=== PATIENT | female | born 1950 | race Caucasian/White ===

== ENCOUNTER → 2016-05-09 | Outpatient (CLI) | payer BC ==
[~2016-05-09] MED LIST: ACET1TAB84 PO; ASPCH81X PO; CETI10TA84 PO; MULT-916 PO; NORT25CA PO; OMEG10007 PO; PARO1TAB29 PO; PIRB200A INH; PRIM50TA29 PO
--- NOTE | 2016-05-09 09:49 | DIAGNOSTIC IMAGING REPORT ---
LEFT THUMB 3 VIEWS ROUTINE CLINICAL HISTORY: S63.602A Left thumb [id number] COMPARISON STUDY: None. FINDINGS: No acute fracture or dislocation. Moderate degenerative changes at the first carpometacarpal joint. Mild soft tissue swelling at the thumb base. No radiopaque foreign bodies. IMPRESSION: No fracture or dislocation within the left thumb. Electronically signed by: Akira Chong M.D. 05/09/2016 9:47 AM Dictated Date/Time: 05/09/2016 9:40 AM
== END | disposition home or self-care (01) ==
LOC: C.RAD1850 09:28
PROVIDERS: ATTEND Internal Medicine
DX: S63.602A Unspecified sprain of left thumb, initial encounter (principal); X58.XXXA Exposure to other specified factors, initial encounter

== ENCOUNTER → 2017-02-11 | Outpatient (CLI) | payer BC ==
--- NOTE | 2017-02-11 15:20 | MAMMOGRAPHY REPORT ---
BILATERAL DIGITAL DIAGNOSTIC MAMMOGRAM TOMOSYNTHESIS WITH CAD AND TARGETED LEFT ULTRASOUND: 7 CLINICAL HISTORY: 66-year-old woman presents for bilateral mammography and also close follow-up of pr obably benign grouped calcifications in the left upper outer quadrant. TECHNIQUE: Bilateral CC and MLO 2-D and tomosynthesis images, spot magnification left CC and ML view s were obtained. Current study was also evaluated with a Computer Aided Detection (CAD) system. COMPARISON: Comparison is made to exams dated: 02/06/2016 mammogram, 02/01/2015 mammogram, 08/02/2014 m ammogram, 02/01/2014 mammogram, 01/18/2014 mammogram, and 01/14/2013 mammogram - [facility]. BREAST COMPOSITION: There are scattered areas of fibroglandular density in both breasts. FINDINGS: The microcalcifications loosely grouped in the upper outer posterior left breast have decr eased in number and conspicuity comparing to prior exams, confirming benignity. There is a faint 2 m m grouping of amorphous microcalcifications in the middle one third of the left breast, 6.3 cm distal to the nipple on the spot magnification CC view, which are unchanged comparing to the spot magnifica tion views performed 02/06/2016, but not as well seen on the 2014 spot magnification views. Although these most likely represent benign fibrocystic changes, another 12 month follow-up diagnostic mammog neva and focused in the central left breast is recommended to ensure stability. No further follow-up is needed with regard to the microcalcifications in the left upper outer posterior breast. There is a 7.2 x 4.1 mm circumscribed oval mass in the lateral left breast, best seen on cc tomosynth esis slice 30, thought to project superiorly based on the MLO view although not as conspicuous. Furt her evaluation with ultrasound was performed. No other obvious new mass, asymmetry, focal area of architectural distortion or other suspicious micr ocalcifications are identified. Targeted ultrasound was performed in the lateral left breast. In the 1:00 axis, 67 m from the nipple , there is an oval circumscribed hypoechoic solid-appearing mass measuring 5.1 x 2.6 x 3.9 mm. This is thought to correspond to the mammographic mass and is indeterminate. Definitive characterization with an ultrasound guided core biopsy is recommended. A more cystic-appearing mass is seen deep to t he first in the approximate 1:30 left breast, 5 cm from the nipple, measuring 3.6 x 2.9 x 2.8 mm. Ul trasound guided cyst aspiration is recommended at the time of core biopsy, to ensure a benign cyst. IMPRESSION: ACR BI-RADS CATEGORY 4: SUSPICIOUS, TARGETED ULTRASOUND ACR BI-RADS CATEGORY 4: SUSPICIO US 1. Less conspicuous and decreased number of grouped microcalcifications in the upper outer posterior left breast, confirming benignity. No further close follow-up is needed at this time. 2. A smaller 2 mm grouping of faint punctate and amorphous microcalcifications in the central left b reast, along the posterior nipple line on the spot magnification CC view appear unchanged for one yea r but longer stability is needed. Another 12 month follow-up diagnostic mammogram of the left breast including spot magnification views is recommended. 3. Ultrasound-guided core biopsy is recommended for an indeterminate solid 5.1 mm mass in the 1:00 l eft breast, thought to correlate with a newly visualized mammographic mass. 4. Ultrasound guided cyst aspiration is recommended at the time of core biopsy for a cystic appearin g 3.6 mm mass in the 1:30 left breast, 5 cm from the nipple. 5. Stable mammographic appearance of the right breast, without evidence of malignancy. These results and recommendations were discussed with the patient at the time of the exam. She tenta tively scheduled the ultrasound guided core biopsy and cyst aspiration prior to leaving our departmen t. Approximately 10% of breast cancers are not detected with mammography. A negative mammographic report should not delay biopsy if a clinically suggestive mass is present. Julianna eG M.D. ay/:02/11/2017 11:25:10 Plaster Mixer: Luis Fernando OLIVIA(R)(M), [facility] letter sent: Abnormal 4/5 BI-RADS Code: ACR BI-RADS Category 4: Suspicious Ultrasound BI-RADS: ACR BI-RADS Category 4: Suspici ous
== END | disposition home or self-care (01) ==
LOC: C.MAMM 08:25
PROVIDERS: ATTEND Obstetrics & Gynecology
DX: R92.8 Other abnormal and inconclusive findings on diagnostic imaging of breast (principal)

== ENCOUNTER → 2017-02-17 | Outpatient (CLI) | payer BC ==
--- NOTE | 2017-02-17 12:23 | Discharge Instructions ---
Discharge Instructions Procedure Procedure Date: Feb 17, 2017. Reason for visit: Left Breast Mass And Cyst. Discharge Discharge Date: Feb 17, 2017. Discharge Diagnosis: post left breast cyst aspiration and core biopsy Instructions Activity Recommendations: Additional Limitations (see below) Return to School/Work: no limitations Recommended Home Diet: No Limitations Provider Instructions: ACTIVITY RECOMMENDATIONS: * No lifting, pushing, pulling or exercising the affected side for three days. RETURN TO SCHOOL/WORK: * You may return to work/school after the procedure, but do not perform any strenuous activities for 24 to 48 hours. MEDICATIONS: * Tylenol (two 325 mg) every four to six hours if needed for mild pain (if not allergic to Tylenol). DIET: * Resume previous diet. SPECIAL CARE INSTRUCTIONS: * Keep biopsy site dry for 24 hours. May shower after 24 hours, but do not soak (bathe) incision. * May remove Tegaderm (plastic patch) tomorrow AFTER showering. * Leave the steri-strips on for one week. Allow the steri-strips to fall off by themselves. If not off after one week, you may remove them. You may place a Bandaid crosswise over the strips, if desired. * Apply ice 10 minutes on and 10 minutes off as needed. * Wear a bra at bedtime to sleep more comfortably for 2-3 days. * Your referring physician should have the results after approximately 5 to 7 business days. * Call for unusual bleeding, fever, drainage, etc or if you have any questions call [phone] during normal business hours or after hours call Dr Ge, . FOLLOW UP VISIT: Follow-up with Referring Physician as scheduled. Allergies Coded Allergies: Latex1 -Allergic Contact Dermititis (Verified Allergy, Mild, RASH, 03/29/16 ) Adhesives (Verified Allergy, Unknown, RASH, 03/29/16) WITH BANDAIDS; TOLERATES PAPER TAPE Benzoyl Peroxide (Verified Allergy, Unknown, RASH, 03/29/16) Dust (Verified Allergy, Unknown, UNK, 03/29/16) Grass (Verified Allergy, Unknown, UNK, 03/29/16) Molds and Smuts (Verified Allergy, Unknown, UNK, 03/29/16) Zelda Durán Recommendations: Call your doctor if: * Temperature above 101 degrees * Pain not relieved by pain medicine ordered * There is increased drainage or redness from any incision * You have any unanswered questions or concerns. Your Doctors Instructions noted above were prepared by provider Julianna Ge. Patient Signature Section: Patient Instructions Signature Page Neetu Allen Patient (or Guardian) Signature/Date: I have read and understand the instructions given to me by my caregivers. Caregiver/RN/Doctor Signature/Date: The above-named patient and/or guardian has received patient instructions on this date. + Original Patient Signature Page (only) stays with chart. Please make copy for patient.
--- NOTE | 2017-02-17 13:34 | MAMMOGRAPHY REPORT ---
ASPIRATION LEFT BREAST: 02/17/2017 CLINICAL HISTORY: Indeterminate 3.6 mm nearly anechoic cystic-appearing mass in the 1:30 left breast. Patient presents for ultrasound-guided cyst aspiration. COMPARISON: Comparison is made to exams dated: 02/17/2017 ultrasound biopsy, 02/11/2017 mammogram, 1 ultrasound, 02/06/2016 mammogram, 02/01/2015 mammogram, and 08/02/2014 mammogram - [facility]. PATIENT CONSENT: After explaining the risks, benefits and alternatives of the procedure to the patien t, informed consent was obtained verbally and in writing. Specific risks include: bleeding, infection and puncture of adjacent structure. A time out was preformed and the left breast was confirmed as th e site for both cyst aspiration and core needle biopsy. First repeat targeted ultrasound was performed in the 1:30 left breast in the area of previously iden tified 3.6 mm mass that was nearly anechoic and a probable cyst. This is again identified and amenab le to ultrasound guided cyst aspiration. The skin of the left breast was cleansed with Betadine. 1% buffered lidocaine without epinephrine was administered subcutaneously and intraparenchymally as wel l as surrounding the cystic-appearing mass. Then a 22-gauge needle was advanced to the site of the m ass and then within the mass. Aspiration was performed and the mass resolved completely, confirming cystic nature. The fluid was somewhat bloody therefore sent to the pathology department for cytologi c analysis. IMPRESSION: ASPIRATION Status post aspiration to resolution of a suspected small cyst in the 1:30 left breast. The cyst res olved completely after aspiration based on ultrasound imaging. The fluid was sent to the pathology d epartment for cytologic analysis. The cyst was incidentally identified on ultrasound and not definitely identified mammographically eit her on the pre-procedure or postprocedure tomosynthesis images. Julianna Ge M.D. ay/:02/17/2017 12:43:34 Cutting Table Operator: Nery MILES)(Lionel), [facility]
--- NOTE | 2017-02-17 13:34 | MAMMOGRAPHY REPORT ---
ULTRASOUND GUIDED BIOPSY LEFT BREAST: 02/17/2017 CLINICAL HISTORY: Indeterminate hypoechoic parallel 5.1 mm mass in the 1:00 left breast. Patient pre sents for ultrasound-guided core biopsy. A cyst aspiration was performed of a cystic-appearing mass in the 1:30 left breast during the same appointment. Please refer to a separate report for full deta il. COMPARISON: Comparison is made to exams dated: 02/11/2017 mammogram, 02/11/2017 ultrasound, 02/06/20 16 mammogram, 02/01/2015 mammogram, 08/02/2014 mammogram, and 02/01/2014 mammogram - [facility]. PATIENT CONSENT: The procedure, risks and benefits were discussed with the patient and informed conse nt was obtained both verbally and in writing. Specific risks to this procedure include: bleeding, in fection, puncture of adjacent structure, nontarget biopsy, sampling error, pain, metal allergy and me dication reaction. PROCEDURE DESCRIPTION: A time out was performed and the left breast was agreed as the site of biopsy. The skin was prepped and draped in the usual sterile fashion. The solid mass in the 1:00 left breast was chosen as the target for biopsy. Subcutaneous and intraparenchymal 1% buffered lidocaine, with a nd without epinephrine, was administered as local anesthesia. A skin incision was made. Through the incision, 4 samples were taken with a 14 gauge Achieve biopsy device. A ribbon shaped metallic marker was placed at the biopsy site. Hemostasis was achieved after manual compression. The patient tolerat ed the procedure well and there was no immediate complication. The samples were sent to the patholog y department in an appropriately labeled container. Postprocedure left cc and MLO 2-D and tomosynthesis images were obtained. There is a new ribbon-shap ed biopsy marker clip in the 1:00 middle one third of the left breast, aligning with the mammographic mass in question. There is mild persistent lidocaine versus postbiopsy hematoma surrounding the bio psy marker clip. IMPRESSION: ULTRASOUND GUIDED BIOPSY 1. Status post ultrasound-guided core biopsy of an indeterminate solid appearing 5.1 mm mass in the 1:00 left breast, with biopsy marker placed at the site. 2. An ultrasound-guided cyst aspiration was performed in the 1:30 left breast during the same appoin tment, and that cystic mass aspirated to resolution. The fluid from the cyst aspiration was also sen t for cytologic analysis. 3. Pending benign pathology/cytology results, would recommend follow-up diagnostic mammograms includ ing spot magnification views in 12 months to ensure stability of previously described microcalcificat ions. The patient will receive notification of the biopsy results from her referring physician. Julianna Ge M.D. ay/:02/17/2017 12:46:18 Shirt Sewer: Nery MILES)(Lionel), [facility]
--- NOTE | 2017-02-17 13:36 | MAMMOGRAPHY REPORT ---
UNILATERAL LEFT DIGITAL DIAGNOSTIC MAMMOGRAM TOMOSYNTHESIS: 02/17/2017 CLINICAL HISTORY: Status post left breast ultrasound-guided cyst aspiration in the 1:30 axis and ultr asound-guided core biopsy in the 1:00 axis. Please refer to the reports from left breast ultrasound-guided cyst aspiration and ultrasound-guided core biopsy performed at the same time for full detail. IMPRESSION: POST PROCEDURE IMAGING FOR MARKER PLACEMENT Please refer to the reports from left breast ultrasound-guided cyst aspiration and ultrasound-guided core biopsy performed at the same time for full detail. Approximately 10% of breast cancers are not detected with mammography. A negative mammographic report should not delay biopsy if a clinically suggestive mass is present. Julianna Ge M.D. ay/:02/17/2017 12:24:21 Manager Clinical Applications: Nery MILES)(Lionel), [facility] BI-RADS Code: Post Procedure Imaging For Marker Placement
== END | disposition home or self-care (01) ==
LOC: C.MAMM 11:26
PROVIDERS: ATTEND Obstetrics & Gynecology
DX: N60.02 Solitary cyst of left breast (principal); N60.92 Unspecified benign mammary dysplasia of left breast

== ENCOUNTER → 2017-04-22 | Outpatient (CLI) | payer BC ==
[~2017-04-22] MED LIST changes: +ACET5TAB2 PO; +ASPI1TAB2 PO; +IPRA1AER2 INH; +MISCCAP80 PO; +MULT-506 PO; +TEARS OPB; +WHEAPOW PO
== END | disposition home or self-care (01) ==
LOC: C.PAPS 13:40
PROVIDERS: ATTEND Obstetrics & Gynecology
DX: Z01.419 Encounter for gynecological examination (general) (routine) without abnormal findings (principal); Z87.898 Personal history of other specified conditions

== ENCOUNTER → 2017-05-28 | Outpatient (CLI) | payer OTHER ==
[~2017-05-28] MED LIST changes: -ACET5TAB2 PO; -ASPI1TAB2 PO; -IPRA1AER2 INH; -MISCCAP80 PO; -MULT-506 PO; -TEARS OPB; -WHEAPOW PO
[2017-05-28 13:35] LABS: BASO % 0.4 %; BASO ABS # 0.03 K/uL (0-0.2); EOS % 2.3 %; EOS ABS # 0.16 K/uL (0-0.5); HEMATOCRIT 40.5 % (37-47); HEMOGLOBIN 13.2 g/dL (12.0-16.0); IG# 0.01 K/uL (0.00-0.02); LYMPH % 40.3 %; LYMPH ABS # 2.85 K/uL (1.2-3.4); MEAN CELL VOLUME 86.9 fL (80-100); MEAN CORPUSCULAR HEMOGLOBIN 28.3 pg (25-34); MEAN CORPUSCULAR HGB CONC 32.6 g/dl (32-36); MEAN PLATELET VOLUME 10.2 fL (7.4-10.4); MONO % 10.6 %; MONO ABS # 0.75 K/uL (0.11-0.59); NEUT % 46.3 %; NEUT ABS # 3.28 K/uL (1.4-6.5); PLATELET COUNT 276 K/uL (130-400); RED CELL DISTRIBUTION WIDTH CV 14.5 % (11.5-14.5); RED CELL DISTRIBUTION WIDTH SD 45.9 fL (36.4-46.3); WHITE BLOOD COUNT 7.08 K/uL (4.8-10.8)
[2017-05-28 14:00] LABS: ALBUMIN 3.8 gm/dl (3.4-5.0); ALT/SGPT 19 U/L (12-78); BLOOD UREA NITROGEN 10 mg/dl (7-18); CALCIUM 9.4 mg/dl (8.5-10.1); CARBON DIOXIDE 27 mmol/L (21-32); CHOLESTEROL 184 mg/dl (0-200); CREATININE 0.76 mg/dl (0.60-1.20); GLUCOSE 90 mg/dl (70-99); POTASSIUM 3.9 mmol/L (3.5-5.1); SODIUM 138 mmol/L (136-145)
[2017-05-28 14:06] LABS: ALKALINE PHOSPHATASE 119 U/L (45-117); AST/SGOT 12 U/L (15-37); LDL CHOLESTEROL CALCULATED 99 mg/dl; TOTAL PROTEIN 7.7 gm/dl (6.4-8.2)
== END | disposition home or self-care (01) ==
LOC: C.LABBC 10:58
PROVIDERS: ATTEND Physician Assistant
DX: Z00.00 Encounter for general adult medical examination without abnormal findings (principal)

== ENCOUNTER → 2017-08-26 | Day surgery (SDC) | payer BC, OTHER ==
[2017-08-11 14:08] VITALS: Ht 156.2 cm; Wt 120.5 kg
[~2017-08-26] VITALS: Ht 156.2 cm; Wt 120.5 kg
[~2017-08-26] MED LIST changes: -ACET1TAB84 PO; +ACET5TAB2 PO; -ASPCH81X PO; +ASPI1TAB2 PO; +IPRA1AER2 INH; +LIDOCAINE HCL 2% 2 ML VIAL (20MG/ML) ONE; +MISCCAP80 PO; +MULT-506 PO; -MULT-916 PO; -PIRB200A INH; +PROPOFOL IV EMULSION 10 MG/ML 20 ML VIAL ONE; +SODIUM CHLORIDE 0.9% 500ML 500 ML IV ONE; +TEARS OPB; +WHEAPOW PO
--- NOTE | 2017-08-26 10:05 | Endo History and Physical ---
History & Physical Date of Service: August 26, 2017. Chief Complaint: Screening Referring Physician: Dr. Valerio History of Present Illness 67 yo CF who presents for screening colonoscopy. Past Surgical History Hx Cardiac Surgery: No Hx Internal Defibrillator: No Hx Pacemaker: No Hx Abdominal Surgery: Yes (TUBAL LIGATION, HYSTEROSCOPY) Hx of Implantable Prosthesis: No Hx Post-Op Nausea and Vomiting: Yes Hx Cancer Surgery: No Hx Thoracic Surgery: No Hx Orthopedic: Yes (RT/LEFT TKA) Hx Urinary Tract Surgery: No Family History None Social History Smoking Status: Never Smoker Hx Substance Use: No Hx Alcohol Use: Yes (RARELY) Allergies Coded Allergies: Latex1 -Allergic Contact Dermititis (Verified Allergy, Mild, RASH, 08/11/17 ) Adhesives (Verified Allergy, Unknown, RASH, 08/11/17) WITH BANDAIDS; TOLERATES PAPER TAPE Benzoyl Peroxide (Verified Allergy, Unknown, RASH, 08/11/17) Dust (Verified Allergy, Unknown, SHORTNESS OF BREATH, 08/11/17) Grass (Verified Allergy, Unknown, SHORTNESS OF BREATH, 08/11/17) Molds and Smuts (Verified Allergy, Unknown, SHORTNESS OF BREATH, 08/11/17) Uncoded Allergies: WOOL (Allergy, Unknown, RASH, 08/11/17) Current Medications Reported Home Medications Medications Dose Route/Sig Max Daily Dose Days Date Category Benefiber Drink Mix (Wheat Dextrin) 1 Pow Pow 1 Dose PO QAM 08/11/17 Reported Combivent Respimat (Ipratropium-Albuterol) 1 Aer Aer 1 Puffs INH HS 08/11/17 Reported Arthritis Pain Reliever (Acetaminophen) 650 Mg Tab 2 Tab PO Q8H PRN 08/11/17 Reported [Gel Tears] 1 Drop OPB HS 08/11/17 Reported Wilma Aspirin Ec Low Dose (Aspirin) 81 Mg Tab 1 Tab PO HS 08/11/17 Reported Paxil (Paroxetine HCl) 40 Mg Tab 40 Mg PO HS 08/11/17 Reported Pamelor (Nortriptyline HCl) 25 Mg Cap 2 Cap PO HS 08/11/17 Reported Probiotic (Probiotic Product) 1 Cap Cap 1 Cap PO QAM 08/11/17 Reported Mysoline (Primidone) 50 Mg Tab 50 Mg PO TID PRN 08/11/17 Reported [place]-3 (Fish Oil) 1 Ea Cap 1 Cap PO QAM 08/11/17 Reported Multivitamin (Multivitamins) Tab 1 Tab PO QAM 08/11/17 Reported Zyrtec (Cetirizine HCl) 10 Mg Tab 10 Mg PO QAM 08/11/17 Reported Vital Signs Weight (Kilograms): 120.45 Height (Feet): 5 Height (Inches): 1.5 Date Time Temp Pulse Resp B/P (MAP) Pulse Ox O2 Delivery O2 Flow Rate FiO2 08/26/17 09:47 37.1 102 20 168/91 (116) 98 Room Air Physical Exam General Appearance: WD/WN, no apparent distress Respiratory/Chest: Auscultation: breath sounds normal Cardiovascular: Heart Auscultation: RRR Abdomen: Bowel Sounds: normal Inspection & Palpation: soft, non-distended, no tenderness, guarding & rebound Assessment and Plan Assessment: 67 yo CF who presents for screening colonoscopy. Plan: Proceed with colonoscopy.
--- NOTE | 2017-08-26 10:55 | Anesthesiology Progress Note ---
Anesthesia Post Op Note Date & Time August 26, 2017 at 10:55 Vital Signs Pain Intensity: 0 Vital Signs Past 12 Hours Date Time Temp Pulse Resp B/P (MAP) Pulse Ox O2 Delivery O2 Flow Rate FiO2 08/26/17 09:47 37.1 102 20 168/91 (116) 98 Room Air Notes Mental Status: alert / awake / arousable, participated in evaluation Pt Amnestic to Procedure: Yes Nausea / Vomiting: adequately controlled Pain: adequately controlled Airway Patency, RR, SpO2: stable & adequate BP & HR: stable & adequate Hydration State: stable & adequate Anesthetic Complications: no major complications apparent
--- NOTE | 2017-08-26 10:58 | Discharge Instructions ---
Endoscopy Patient Instructions Date / Procedure(s) Performed August 26, 2017. Colonoscopy Allergy Information Coded Allergies: Latex1 -Allergic Contact Dermititis (Verified Allergy, Mild, RASH, 08/11/17 ) Adhesives (Verified Allergy, Unknown, RASH, 08/11/17) WITH BANDAIDS; TOLERATES PAPER TAPE Benzoyl Peroxide (Verified Allergy, Unknown, RASH, 08/11/17) Dust (Verified Allergy, Unknown, SHORTNESS OF BREATH, 08/11/17) Grass (Verified Allergy, Unknown, SHORTNESS OF BREATH, 08/11/17) Molds and Smuts (Verified Allergy, Unknown, SHORTNESS OF BREATH, 08/11/17) Uncoded Allergies: WOOL (Allergy, Unknown, RASH, 08/11/17) Discharge Date / Findings August 26, 2017. Colon polyps Diverticulosis Internal hemorrhoids Medication Instructions Stopped Medication(s): Patient was told to not take any medications this am. OK to resume all medications today as prescribed Reported Home Medications Medications Dose Route/Sig Max Daily Dose Days Date Category Benefiber Drink Mix (Wheat Dextrin) 1 Pow Pow 1 Dose PO QAM 08/11/17 Reported Combivent Respimat (Ipratropium-Albuterol) 1 Aer Aer 1 Puffs INH HS 08/11/17 Reported Arthritis Pain Reliever (Acetaminophen) 650 Mg Tab 2 Tab PO Q8H PRN 08/11/17 Reported [Gel Tears] 1 Drop OPB HS 08/11/17 Reported Wilma Aspirin Ec Low Dose (Aspirin) 81 Mg Tab 1 Tab PO HS 08/11/17 Reported Paxil (Paroxetine HCl) 40 Mg Tab 40 Mg PO HS 08/11/17 Reported Pamelor (Nortriptyline HCl) 25 Mg Cap 2 Cap PO HS 08/11/17 Reported Probiotic (Probiotic Product) 1 Cap Cap 1 Cap PO QAM 08/11/17 Reported Mysoline (Primidone) 50 Mg Tab 50 Mg PO TID PRN 08/11/17 Reported [place]-3 (Fish Oil) 1 Ea Cap 1 Cap PO QAM 08/11/17 Reported Multivitamin (Multivitamins) Tab 1 Tab PO QAM 08/11/17 Reported Zyrtec (Cetirizine HCl) 10 Mg Tab 10 Mg PO QAM 08/11/17 Reported Provider Instructions Activity Restrictions - No exercising or heavy lifting for 24 hours. - Do not drink alcohol the day of the procedure. - Do not drive a car or operate machinery until the day after the procedure. - Do not make any important decisions or sign important papers in 24 hours after the procedure. Following Day: - Return to full activity which may include returning to work/school. Diet Start your diet with liquids and light foods (jello, soup, juice, toast). Then eat your usual diet if not nauseated. Treatment For Common After Affects For mild abdominal pain, bloating, or excessive gas: - Rest - Eat lightly - Lie on right side Follow-Up Information Follow-up with Dr. Valerio as scheduled Anesthesia Information What You Should Know You have had a procedure that required some medicine to reduce anxiety and discomfort. This treatment is called moderate sedation. After receiving the treatment, you may be sleepy, but you will be able to breathe on your own. The effects of the treatment may last for several hours. Follow these instructions along with Activity/Diet recommendations noted above: * Do NOT do anything where dizziness or clumsiness would be dangerous. * Rest quietly at home today, then you can be up and about tomorrow. * Have a responsible person stay with you the rest of today. * You may have had an I.V. today. If so, you may take the dressing off later today. Recommendations Call your doctor if: * Trouble breathing * Continuous vomiting for more than 24 hours * Temperature above 101 degrees * Severe abdominal pain or bloating * Pain not relieved by pain medicine ordered * There is increased drainage or redness from any incision * A large amount of rectal bleeding greater than 2-3 tablespoons. (If you had a polyp/s removed or have hemorrhoids, a small amount of blood - from the rectum is to be expected.) * You have any unanswered questions or concerns. IN THE EVENT OF A SERIOUS EMERGENCY, GO TO THE NEAREST EMERGENCY ROOM Your discharge instructions were prepared by provider Jeff Cordero. Patient Instructions Signature Page Neetu Villa Patient (or Guardian) Signature/Date: I have read and understand the instructions given to me by my caregivers. Caregiver/RN/Doctor Signature/Date: The above-named patient and/or guardian has received patient instructions on this date. + Original Patient Signature Page (only) stays with chart. Please make copy for patient.
--- NOTE | 2017-08-26 11:07 | GI REPORT ---
Patient Name: Neetu Villa Procedure Date: 08/26/2017 10:11 AM Date of : 1950 Admit Type: Outpatient Age: 67 Gender: Female Attending MD: Jeff Cordero DO Procedure: Colonoscopy Providers: Jeff Cordero DO Referring MD: Phoenix Valerio Indications: High risk colon cancer surveillance: Personal history of colonic polyps Medicines: Monitored Anesthesia Care Complications: No immediate complications. Estimated Blood Loss: Estimated blood loss: none. Procedure: Pre-Anesthesia Assessment: - Prior to the procedure, a History and Physical was performed, and patient medications and allergies were reviewed. The patient's tolerance of previous anesthesia was also reviewed. The risks and benefits of the procedure and the sedation options and risks were discussed with the patient. All questions were answered, and informed consent was obtained. Prior Anticoagulants: The patient has taken aspirin, last dose was 1 day prior to procedure. ASA Grade Assessment: III - A patient with severe systemic disease. After reviewing the risks and benefits, the patient was deemed in satisfactory condition to undergo the procedure. After I obtained informed consent, the scope was passed under direct vision. Throughout the procedure, the patient's blood pressure, pulse, and oxygen saturations were monitored continuously. The scope was introduced through the anus and advanced to the terminal ileum. The colonoscopy was performed without difficulty. The patient tolerated the procedure well. The quality of the bowel preparation was good. The terminal ileum, ileocecal valve, appendiceal orifice, and rectum were photographed. Findings: The perianal and digital rectal examinations were normal. Three sessile polyps were found in the transverse colon and ascending colon. The polyps were 4 to 6 mm in size. These polyps were removed with a hot snare. Resection and retrieval were complete. Multiple small-mouthed diverticula were found in the sigmoid colon. Non-bleeding internal hemorrhoids were found during retroflexion. The hemorrhoids were small. Impression: - Three 4 to 6 mm polyps in the transverse colon and in the ascending colon, removed with a hot snare. Resected and retrieved. - Diverticulosis in the sigmoid colon. - Non-bleeding internal hemorrhoids. Recommendation: - Resume previous diet. - Continue present medications. - Repeat colonoscopy for surveillance based on pathology results. - Return to primary care physician as previously scheduled. Jeff Cordero DO 08/26/2017 11:07:13 AM This report has been signed electronically. Note Initiated On: 08/26/2017 10:11 AM Number of Addenda: 0 I attest to the content of the Intraoperative Record and orders documented therein, exceptions below {[id number]}
[2017-08-26 11:17] VITALS: BP 145/71; PULSE 85; O2SAT 99
== END | disposition home or self-care (01) ==
LOC: C.GI 09:22
PROVIDERS: ATTEND Internal Medicine
DX: Z12.11 Encounter for screening for malignant neoplasm of colon (principal); D12.2 Benign neoplasm of ascending colon; D12.3 Benign neoplasm of transverse colon; K57.30 Diverticulosis of large intestine without perforation or abscess without bleeding; K64.8 Other hemorrhoids; Z86.010 Personal history of colon polyps; J45.909 Unspecified asthma, uncomplicated; E66.9 Obesity, unspecified; K21.9 Gastro-esophageal reflux disease without esophagitis; Z91.040 Latex allergy status; Z91.048 Other nonmedicinal substance allergy status; Z88.8 Allergy status to other drugs, medicaments and biological substances; Z79.82 Long term (current) use of aspirin; Z79.899 Other long term (current) drug therapy

== ENCOUNTER → 2017-11-14 | Outpatient (CLI) | payer BC ==
[~2017-11-14] MED LIST changes: -LIDOCAINE HCL 2% 2 ML VIAL (20MG/ML) ONE; -PROPOFOL IV EMULSION 10 MG/ML 20 ML VIAL ONE; -SODIUM CHLORIDE 0.9% 500ML 500 ML IV ONE
--- NOTE | 2017-11-14 12:05 | DIAGNOSTIC IMAGING REPORT ---
LEFT NECK/SUBMANDIBULAR ULTRASOUND CLINICAL HISTORY: Left-sided tenderness with small palpable nodule in the left submental area. COMPARISON STUDY: None. TECHNIQUE: Sonography of the left submental/submandibular region was performed. Comparison sonography of the right submental region was also performed. FINDINGS: Left submandibular gland is normal by sonography. No mass is identified. There are several morphologically benign left level 1 and 2 cervical lymph nodes that measure up to 1.1 x 1 x 0.7 cm. Each of these nodes contains a fatty hilum. A prominent right level 2 cervical lymph node measures 2.3 x 0.8 x 1.6 cm but contains a fatty hilum and is likely benign. IMPRESSION: 1. Several morphologically benign left level 1 and 2 cervical lymph nodes. No suspicious findings by sonography however clinical follow up to ensure stability is recommended. If progressive enlargement, a repeat ultrasound is recommended. 2. Normal sonographic appearance of the left submandibular gland. Electronically signed by: Edgar Espinal M.D. 11/14/2017 12:03 PM Dictated Date/Time: 11/14/2017 12:01 PM
== END | disposition home or self-care (01) ==
LOC: C.ULTR 11:30
PROVIDERS: ATTEND Physician Assistant
DX: M54.2 Cervicalgia (principal)

== ENCOUNTER 2024-11-22 07:44 | Observation (INO) ==
--- NOTE | 2024-10-26 09:31 | PAT Medication Instructions ---
Medication Instructions Date of Service October 26, 2024 Home Medications Medication Instructions Recorded albuterol sulfate 90 mcg/actuation 2 puff inhalation QID PRN 08/29/21 aerosol inhaler shortness of breath or wheezing #18 grams hydrochlorothiazide 25 mg tablet 25 mg PO QAM #90 tabs 12/19/23 nortriptyline 25 mg capsule 25 mg PO HS #90 caps 06/02/24 primidone 50 mg tablet 50 mg PO BID #60 tabs 10/15/24 chlorpheniramine maleate 4 mg 4 mg PO Q12H 90 days #180 tabs 10/20/24 tablet (Allergy Relief (chlorpheniramine)) acetaminophen 650 mg tablet,extended release 1,300 mg PO Q12H amoxicillin 500 mg capsule 2,000 mg PO UD aspirin 81 mg tablet 81 mg PO PM carboxymethylcellulose sod-hypromell 0.25 %-0.3 % eye liquid gel drops See Rx Instructions ophthalmic (eye) .COMPLEX multivitamin (Multiple Vitamins tablet) 1 tab PO QAM omega-3 fatty acids 1,000 mg capsule (Fish Oil Concentrate) See Rx Instructions PO .COMPLEX albuterol sulfate 90 mcg/actuation aerosol inhaler 2 puff inhalation QID PRN hydrochlorothiazide 25 mg tablet 25 mg PO QAM cholecalciferol (vitamin D3) 50 mcg (2,000 unit) capsule 50 mcg PO QPM docusate sodium 100 mg capsule (Colace) 100 mg PO QPM nortriptyline 25 mg capsule 25 mg PO HS primidone 50 mg tablet 50 mg PO BID chlorpheniramine maleate 4 mg tablet (Allergy Relief (chlorpheniramine)) 4 mg PO Q12H cyanocobalamin (vitamin B-12) 5,000 mcg capsule 5,000 mcg PO WK fluoxetine 40 mg capsule 40 mg PO QPM fluticasone propionate 50 mcg/actuation nasal spray,suspension (Flonase Allergy Relief) 1 spray intranasal BID PRN ibuprofen 200 mg tablet (Advil) 400 mg PO Q6H PRN Continue as directed amoxicillin 500 mg capsule 2,000 mg PO UD carboxymethylcellulose sod-hypromell 0.25 %-0.3 % eye liquid gel drops See Rx Instructions ophthalmic (eye) .COMPLEX ASK your surgeon for instructions ibuprofen 200 mg tablet (Advil) 400 mg PO Q6H PRN ASK your prescriber and surgeon aspirin 81 mg tablet 81 mg PO PM STOP taking 2 weeks before surgery (or as soon as possible if surgery is within 2 weeks) omega-3 fatty acids 1,000 mg capsule (Fish Oil Concentrate) See Rx Instructions PO .COMPLEX DO NOT take the morning of surgery multivitamin (Multiple Vitamins tablet) 1 tab PO QAM hydrochlorothiazide 25 mg tablet 25 mg PO QAM chlorpheniramine maleate 4 mg tablet (Allergy Relief (chlorpheniramine)) 4 mg PO Q12H cyanocobalamin (vitamin B-12) 5,000 mcg capsule 5,000 mcg PO WK Take morning of surgery With a small sip of water, OTHERWISE NOTHING TO EAT OR DRINK AFTER MIDNIGHT: acetaminophen 650 mg tablet,extended release 1,300 mg PO Q12H albuterol sulfate 90 mcg/actuation aerosol inhaler 2 puff inhalation QID PRN(use if needed; please bring with you to hospital day of surgery if possible) primidone 50 mg tablet 50 mg PO BID fluticasone propionate 50 mcg/actuation nasal spray,suspension (Flonase Allergy Relief) 1 spray intranasal BID PRN(if needed) Take evening before surgery acetaminophen 650 mg tablet,extended release 1,300 mg PO Q12H albuterol sulfate 90 mcg/actuation aerosol inhaler 2 puff inhalation QID PRN(if needed) cholecalciferol (vitamin D3) 50 mcg (2,000 unit) capsule 50 mcg PO QPM docusate sodium 100 mg capsule (Colace) 100 mg PO QPM nortriptyline 25 mg capsule 25 mg PO HS primidone 50 mg tablet 50 mg PO BID chlorpheniramine maleate 4 mg tablet (Allergy Relief (chlorpheniramine)) 4 mg PO Q12H fluoxetine 40 mg capsule 40 mg PO QPM fluticasone propionate 50 mcg/actuation nasal spray,suspension (Flonase Allergy Relief) 1 spray intranasal BID PRN(if needed) Other Notes If you have any questions please call us at [phone] or [phone] or [phone] or [phone]
--- NOTE | 2024-11-02 13:09 | Anesthesiology Consultation ---
Date of Service November 02, 2024 Assessment & Plan (1) Encounter for pre-operative examination: - Infectious disease screening: Per assessment on 11/02/24- No known recent infectious disease contacts or current infectious disease symptoms. - Outpatient joint assessment: Pt currently scheduled for inpatient pathway. If surgeon requests review for outpatient joint pathway, patient is not recommended candidate for outpatient joint program from anesthesia standpoint based on available information. - [place] neurology visit (10/21/24): "pt presents for f/u sec to essential tremor.. tremors ( L> R hand) are controlled on Primidone 50 mg BID.. Bilateral upper extremity postural/action tremor, minimal interference with activities such as eating, drinking, handwriting. 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 The episodes are seldom and she can not identify triggers.. b/l feet numbness and tingling with periodic sharp pain x 2 yrs.. Worse at rest.. Sleep is ok.. Her mood is stable on current regimen.. No formal exercise routine.. BW from 07/15/2024 was discussed in great details, vit B12- 987.." "Tremor.. controlled on current regimen.. Numbness and tingling of foot.. EMG ordered" > EMG done 10/21/24 noted mild underlying polyneuropathy involving predominantly sensory fibers + mild chronic active lower lumbosacral radiculopathy, likely S1 or L5. - Hx severe motion sickness + PONV: Significant improvement with PONV when pre- treatment given perioperatively. Chart Review Chart Review: Acceptable Risk for Surgery and Patient seen in Pre Admission Testing Teaching & Discussion Pre-Anesthesia Teaching/Discussion Notes: Instructed NPO after midnight before surgery,except medications with 15 cc of water. Medication instructions provided according to the PAT guidelines. History Surgery Operation Date: 11/22/24 07:15 Proposed Procedures p Right Reverse Total Shoulder Arthroplasty - Robi Winter, Height/Weight Height: 5 ft 1 in Weight: 108.9 kg Allergies Allergy/AdvReac Type Severity Reaction Status Date / Time grass pollen-perennial rye, Allergy Intermediate Hives Verified 10/21/24 12:51 standar mold Allergy Intermediate Shortness Verified 11/02/24 11:33 of breath benzoyl peroxide Allergy Mild Rash Verified 11/02/24 11:33 latex Allergy Mild Rash Verified 11/02/24 11:33 ceramide combination no.1 AdvReac Intermediate "Broke out Verified 11/02/24 11:33 (1,3,6-II) on [From CeraVe] face/chin area, hot to touch" grass pollen AdvReac Intermediate Difficulty Verified 10/21/24 12:51 Breathing adhesive tape AdvReac Mild Rash Verified 10/21/24 12:51 cats Allergy Intermediate Dyspnea Uncoded 11/02/24 11:33 Dust Allergy Intermediate Shortness Uncoded 11/02/24 11:33 of breath WOOL Allergy Mild Rash Uncoded 11/02/24 11:33 Medications Home Medications Medication Instructions Recorded Confirmed Last Taken acetaminophen 650 mg 1,300 mg PO Q12H 01/11/19 10/21/24 08/30/22 tablet,extended release amoxicillin 500 mg capsule 2,000 mg PO UD 01/11/19 10/21/24 Unknown aspirin 81 mg tablet 81 mg PO PM 01/11/19 10/21/24 08/27/22 carboxymethylcellulose See Rx Instructions ophthalmic 01/11/19 10/21/24 08/31/22 sod-hypromell 0.25 %-0.3 % eye (eye) .COMPLEX liquid gel drops multivitamin (Multiple Vitamins 1 tab PO QAM 01/11/19 10/21/24 08/31/22 tablet) omega-3 fatty acids 1,000 mg See Rx Instructions PO .COMPLEX 01/11/19 10/21/24 08/31/22 capsule (Fish Oil Concentrate) albuterol sulfate 90 mcg/actuation 2 puff inhalation QID PRN 08/29/21 10/21/24 Unknown aerosol inhaler shortness of breath or wheezing #18 grams hydrochlorothiazide 25 mg tablet 25 mg PO QAM #90 tabs 12/19/23 10/21/24 Unknown cholecalciferol (vitamin D3) 50 50 mcg PO QPM 04/19/24 10/21/24 Unknown mcg (2,000 unit) capsule docusate sodium 100 mg capsule 100 mg PO QPM 04/19/24 10/21/24 Unknown (Colace) nortriptyline 25 mg capsule 25 mg PO HS #90 caps 06/02/24 10/21/24 Unknown primidone 50 mg tablet 50 mg PO BID #60 tabs 10/15/24 10/21/24 Unknown chlorpheniramine maleate 4 mg 4 mg PO Q12H 90 days #180 tabs 10/20/24 10/21/24 Unknown tablet (Allergy Relief (chlorpheniramine)) cyanocobalamin (vitamin B-12) 3,000 mcg PO WK 10/21/24 11/02/24 Unknown 5,000 mcg capsule fluoxetine 40 mg capsule 40 mg PO QPM 10/21/24 10/21/24 Unknown fluticasone propionate 50 1 spray intranasal BID PRN 10/21/24 10/21/24 Unknown mcg/actuation nasal Congestion spray,suspension (Flonase Allergy Relief) ibuprofen 200 mg tablet (Advil) 400 mg PO Q6H PRN Pain 10/21/24 10/21/24 Unknown Past Medical History Medical History Anxiety and depression Asthma Benign breast neoplasm Demyelinating disorder Patient unaware Per [address] [facility] [place] neuro notes, brain MRI showed "evidence of nonspecific white matter hyperintensities in the frontal lobes. These changes could be seen in the setting of chronic small vessel ischemic disease or demyelination" Unremarkable Head CT 12/21/[address] [facility] [place] neuro Dry eye syndrome Environmental allergies Essential tremor Hands Gall stones Hx of migraines Hx of motion sickness Hyperglycemia ? Pre-diabetic HGBA1C 07/15/24 5.3% (WNL) Hypertension Lump on neck Chronic, stable x years per patient. Denies dysphagia/odynophagia Head/neck ultrasound done 12/02/22 for further evaluation- "The patient's palpable abnormality corresponds to normal-appearing left submandibular lymph node." Morbid obesity Osteoarthritis Skin tag Uterine enlargement + "benign ovarian growth" Exercise / Class Metabolic Activity II 4-5 Yardwork/Stairs/Walk up hill (one FS: No CP, no SOB) Past Family History Family History Aunt Ovarian cancer maternal aunt Breast cancer maternal aunt Father Hyperlipidemia Myocardial infarction Colonic polyp Son Asthma Daughter Stroke Mother Myocardial infarction Hypertension Brother FH: deafness or hearing loss Pulmonary embolism Family/Other Parkinson disease Sister Stroke Other No family history of adverse response to anesthesia Denies family history of Bleeding disorder Past Surgical History Surgical History H/O breast biopsy benign History of tooth extraction Hx of colonoscopy with polypectomy S/P dilation and curettage S/P knee replacement R/L (2008) S/P tubal ligation Status post hysteroscopy Past Anesthesia History No Hx of Anesthesia Complications and No Family Hx of Anesthesia Complications History of PONV History of PONV and Hx of Motion Sickness Social History Smoking Status: Never smoker Do You Dip or Chew Tobacco: No Hx Alcohol Use: No Hx Substance Use: No substance use type: does not use Review of Systems Rare palpitations. Patient denies chest pain, shortness of breath, dyspnea on exertion, fever, chills, cough, wheezing. Physical Exam Vital Signs BP 109/68 P 86 TEMP 98.1 SP02 97% RA RESP 16 Physical Full cervical extension range of motion. Full TMJ range of motion. TMD > 3.5 finger breaths Mallampati Score II Dentition: intact, + several caps (including upper front), + implant Lungs: clear throughout to auscultation Cardiac: regular rate and rhythm, no murmurs noted Spine: normal Carotid arteries: negative bruit Extremities: no LE edema Lab Results Anesthesia Preop Results Results Anesthesia Widget: WBC 6.26 K/ul (4.8-10.8) 11/02/24 Hgb 12.7 g/dl (12.0-16.0) 11/02/24 Hct 37.2 % (37.0-47.0) 11/02/24 Plt 301 K/uL (130-400) 11/02/24 Na 139 mmol/L (136-145) 11/02/24 K 3.3 mmol/L (3.5-5.1) L 11/02/24 Cl 102 mmol/L (98-107) 11/02/24 CO2 26 mmol/L (21-32) 11/02/24 BUN 13 mg/dl (6-23) 11/02/24 Creat 0.86 mg/dl (0.6-1.2) 11/02/24 Glucose Level 100 mg/dl (70-99(Fasting)) H 11/02/24 PT 9.9 Seconds (9.0-12.0) 11/02/24 PTT 25 Seconds (21-31) 11/02/24 INR 0.9 (0.9-1.1) 11/02/24 Blood Type A Positive 11/02/24 Antibody Screen NEGATIVE 11/02/24 Testing Laboratory Results HGBA1C 3/20/25: 5.3% Electrocardiogram Date: 11/02/24 NSR at 80bpm. NS STA. No significant change compared to 03/13/2016 per life skills worker comparison. Chest X-Ray Date: 11/02/24 FINDINGS: Cardiomediastinal and hilar silhouettes are unchanged. There is no pneumothorax, pleural effusion, airspace consolidation or overt pulmonary edema. Mild chronic interstitial coarsening of the lung bases. Spondylitic spurring of the spine. IMPRESSION: No acute process. Echocardiogram Date: 07/16/22 LVEF 55 to 60%. Mild concentric LVH. No regional wall motion abnormality. No significant valvular disease. Normal estimated RA pressure.
--- NOTE | 2024-11-18 11:59 | History & Physical Report ---
Date of Service November 18, 2024 Assessment & Plan (1) Osteoarthritis of right shoulder: We will proceed with a right reverse shoulder arthroplasty. Postoperatively she will be placed in a sling and will be part of her outpatient joint protocol. She plans to use [employer] after discharge. History of Present Illness Chief Complaint: Osteoarthritis right shoulder. Primary Care Provider: Phoenix Stephenson MD Neetu is a pleasant 74-year-old female who has been dealing with chronic increasing right shoulder pain. She has been treated by other providers. X- rays and clinical exam have shown advanced arthritis of the right shoulder. After failing years of conservative treatment, she has elected proceed with a right reverse shoulder arthroplasty. . Allergies Allergy/AdvReac Type Severity Reaction Status Date / Time grass pollen-perennial rye, Allergy Intermediate Hives Verified 11/16/24 16:05 standar mold Allergy Intermediate Shortness Verified 11/16/24 16:05 of breath benzoyl peroxide Allergy Mild Rash Verified 11/16/24 16:05 latex Allergy Mild Rash Verified 11/16/24 16:05 ceramide combination no.1 AdvReac Intermediate "Broke out Verified 11/16/24 16:05 (1,3,6-II) on [From CeraVe] face/chin area, hot to touch" grass pollen AdvReac Intermediate Difficulty Verified 11/16/24 16:05 Breathing adhesive tape AdvReac Mild Rash Verified 11/16/24 16:05 cats Allergy Intermediate Dyspnea Uncoded 11/16/24 16:05 Dust Allergy Intermediate Shortness Uncoded 11/16/24 16:05 of breath WOOL Allergy Mild Rash Uncoded 11/16/24 16:05 Home Medications Medication Instructions Recorded Confirmed Type acetaminophen 650 mg 1,300 mg PO Q12H 01/11/19 11/16/24 History tablet,extended release amoxicillin 500 mg capsule 2,000 mg PO UD 01/11/19 11/16/24 History aspirin 81 mg tablet 81 mg PO PM 01/11/19 11/16/24 History carboxymethylcellulose See Rx Instructions ophthalmic 01/11/19 11/16/24 History sod-hypromell 0.25 %-0.3 % eye (eye) .COMPLEX liquid gel drops multivitamin (Multiple Vitamins 1 tab PO QAM 01/11/19 11/16/24 History tablet) omega-3 fatty acids 1,000 mg See Rx Instructions PO .COMPLEX 01/11/19 11/16/24 History capsule (Fish Oil Concentrate) albuterol sulfate 90 mcg/actuation 2 puff inhalation QID PRN 08/29/21 11/16/24 Rx aerosol inhaler shortness of breath or wheezing #18 grams cholecalciferol (vitamin D3) 50 50 mcg PO QPM 04/19/24 11/16/24 History mcg (2,000 unit) capsule docusate sodium 100 mg capsule 100 mg PO QPM 04/19/24 11/16/24 History (Colace) primidone 50 mg tablet 50 mg PO BID #60 tabs 10/15/24 11/16/24 Rx chlorpheniramine maleate 4 mg 4 mg PO Q12H 90 days #180 tabs 10/20/24 11/16/24 Rx tablet (Allergy Relief (chlorpheniramine)) cyanocobalamin (vitamin B-12) 3,000 mcg PO WK 10/21/24 11/16/24 History 5,000 mcg capsule fluticasone propionate 50 1 spray intranasal BID PRN 10/21/24 11/16/24 History mcg/actuation nasal Congestion spray,suspension (Flonase Allergy Relief) ibuprofen 200 mg tablet (Advil) 400 mg PO Q6H PRN Pain 10/21/24 11/16/24 History fluoxetine 40 mg capsule 40 mg PO QPM #90 caps 11/17/24 Rx hydrochlorothiazide 25 mg tablet 25 mg PO QAM #90 tabs 11/17/24 Rx nortriptyline 25 mg capsule 25 mg PO HS #90 caps 11/17/24 Rx Past Med/Surg History Problem List (Updated 11/18/24 @ 11:59 by Robi Winter DO) Osteoarthritis of right shoulder Encounter for pre-operative examination Lumbosacral radiculopathy Sensory polyneuropathy Numbness and tingling of both feet Postmenopausal Gait instability Vitamin B12 deficiency History of colon polyps Elevated alkaline phosphatase level Tremor Trochanteric bursitis, right hip Degenerative joint disease of both hips Hypertension Trochanteric bursitis, left hip Hyperglobulinemia Vitamin D deficiency disease Allergic rhinitis due to cats (Acute) Allergic rhinitis due to pollen (Acute) Arthralgia of multiple sites (Acute) Ataxia (Acute) Cerebrovascular disease (Acute) Diverticulosis (Acute) Extrinsic asthma (Acute) Generalized anxiety disorder (Acute) Hearing decreased (Acute) Internal hemorrhoids (Acute) Metabolic syndrome (Acute) Migraine headache (Acute) Nonalcoholic fatty liver disease (Acute) Obesity, morbid, BMI 40.0-49.9 (Acute) Osteoarthritis of basilar joint of thumb (Acute) Ovarian cyst, right (Acute) simple cyst, <5cm, yearly us Tubular adenoma of colon (Acute) Venous stasis (Acute) Medical History Morbid obesity Lump on neck Chronic, stable x years per patient. Denies dysphagia/odynophagia Head/neck ultrasound done 12/02/22 for further evaluation- "The patient's palpable abnormality corresponds to normal-appearing left submandibular lymph node." Essential tremor Hands Hx of motion sickness Osteoarthritis Gall stones Environmental allergies Dry eye syndrome Anxiety and depression Hx of migraines Hyperglycemia ? Pre-diabetic HGBA1C 07/15/24 5.3% (WNL) Hypertension Asthma Skin tag Uterine enlargement + "benign ovarian growth" Demyelinating disorder Patient unaware Per 2011 [facility] [place] neuro notes, brain MRI showed "evidence of nonspecific white matter hyperintensities in the frontal lobes. These changes could be seen in the setting of chronic small vessel ischemic disease or demyelination" Unremarkable Head CT 12/21/23 Follows with [facility] [place] neuro Benign breast neoplasm Surgical History History of tooth extraction H/O breast biopsy benign Hx of colonoscopy with polypectomy S/P knee replacement R/L (2008) S/P tubal ligation Status post hysteroscopy S/P dilation and curettage Family History Aunt Ovarian cancer maternal aunt Breast cancer maternal aunt Father Hyperlipidemia Myocardial infarction Colonic polyp Son Asthma Daughter Stroke Mother Myocardial infarction Hypertension Brother FH: deafness or hearing loss Pulmonary embolism Family/Other Parkinson disease Sister Stroke Other No family history of adverse response to anesthesia Denies family history of Bleeding disorder Social History Smoking Status: Never smoker Second Hand Exposure: No; Do You Dip or Chew Tobacco: No; Hx Alcohol Use: No Hx Substance Use: No Preferred Language: Pakistani Communication Ability: Effective Visual Impairment: No Limitations Hearing Ability: Normal Manager [employer] Required: No Beliefs That Will Affect Care: None marital status: Current Living Situation: Spouse current occupational status: retired Feels Safe at Home: Yes Childhood Exposure to Second-Hand Smoke: No Diet: regular Dental Care, Regularly: Yes Physical Activity Frequency: 1-2 Times per Week Seatbelt Use: always Sunscreen Use: Yes Assistive Devices: Glasses Review of Systems All systems reviewed & are unremarkable except as noted in HPI & below. Physical Exam On physical exam of the right shoulder, she has about 80 degrees of forward elevation and 60 degrees of abduction. She has pain and crepitus throughout.. Constitutional WD/WN, vitals as above Eyes PERRL, conjunctivae normal, anicteric sclerae ENMT external ear and nose normal, oropharynx normal Neck trachea midline, no thyromegaly Respiratory normal respiratory effort Cardiovascular RRR, no murmur, no edema Gastrointestinal (Abdomen) normal bowel sounds, soft, nontender, no hepatosplenomegaly Psychiatric A+Ox3, euthymic affect Results & Data Results & Data Laboratory Results . Diagnostic Findings X-rays of the right shoulder show severe osteoarthritis with joint space na rrowing, osteophyte formation, and egus-du-apia articulation.. PG Care Time/CCT Total # of Minutes Spent Total Time Spent with Patient: Total time spent is greater than 50% in coordination of care (as documented) at patient's floor/unit and/or counseling patient: Coding Level of Care Code None Diagnoses Osteoarthritis of right shoulder M19.011
[~2024-11-22 07:44] MED LIST changes: -ACET5TAB2 PO; -ASPI1TAB2 PO; +BUPIVACAINE 0.5 % 5 MG/1 ML PF 10ML VIAL ONE; -CETI10TA84 PO; -IPRA1AER2 INH; -MISCCAP80 PO; -MULT-506 PO; -NORT25CA PO; -OMEG10007 PO; -PARO1TAB29 PO; -PRIM50TA29 PO; -TEARS OPB; -WHEAPOW PO
[2024-11-22] MEDS: ACETAMINOPHEN 500 MG TAB PO SCH ×2 (08:10→14:05)
[2024-11-22] MEDS: LR 60ML/HR IV SCH (08:18)
[2024-11-22] MEDS ORDERED: ONDANSETRON INJ 2 MG/ML 2 ML VIAL ONE (08:19)
[2024-11-22] MEDS ORDERED: DEXAMETHASONE SOD INJ 4 MG/ML VIAL ONE (08:19)
[2024-11-22] MEDS ORDERED: PROPOFOL IV EMULSION 10 MG/ML 20 ML VIAL IV ONE (08:19)
[2024-11-22] MEDS ORDERED: MIDAZOLAM HCL 1 MG/ML 2ML VIAL ONE (08:19)
[2024-11-22] MEDS: FAMOTIDINE 20 MG TAB PO SCH (08:20)
[2024-11-22] MEDS: GABAPENTIN 300 MG CAP PO SCH (08:20)
[2024-11-22] MEDS: dexAMETHasone**PF** 10 MG/ML VIAL IV SCH (08:21)
[2024-11-22] MEDS: LR 15ML/HR IV SCH (08:23)
--- NOTE | 2024-11-22 09:08 | History & Physical Bridge Note ---
Date of Service November 22, 2024 History & Physical Bridge Note I have examined the patient, reviewed the History & Physical and in the interval since the performance of the History & Physical I have noted the following changes of clinical significance: no changes noted
[2024-11-22] MEDS ORDERED: ONDANSETRON INJ 2 MG/ML 2 ML VIAL IV PRN ×2 (09:17→12:43)
[2024-11-22] MEDS ORDERED: ATROPINE SULFATE 0.1 MG/ML 10ML SYR IV PRN (09:17)
[2024-11-22] MEDS: TRANEXAMIC ACID 1,000 MG **IV Pre-op IV SCH (09:43)
[2024-11-22] MEDS: ORTHO JOINT ANESTHETIC ONE (10:22)
[2024-11-22] MEDS ORDERED: ePHEDrine sulfate 50 MG/5 ML SYR ONE (10:23)
[2024-11-22] MEDS ORDERED: PHENYLEPHRINE 100MCG/ML 5ML SYR ONE (10:23)
[2024-11-22] MEDS: ROPIV 0.5% 246mg, Ketorolac 30mg, EPINEPHrine 0.5mg in NSS INFIL SCH (11:13)
--- NOTE | 2024-11-22 11:16 | Operative Report ---
PG Post Operative Report Pre & Post Diagnosis Operation Date: 11/22/24 10:00 Pre-Op Diagnosis: Osteoarthritis of right shoulder with tendinopathy long head of biceps tendon Post-Op Diagnosis: Osteoarthritis of right shoulder with tendinopathy long head of biceps tendon I identified the patient and participated in the time-out.: Yes Procedure Operation Date: 11/22/24 10:00 Actual Procedures p Right Reverse Total Shoulder Arthroplasty(Right) with open biceps tenodesis as a distinct and separate procedure (modifier 59)- Robi Winter DO Surgeon Robi Winter DO [employer] Gama Galeana PA-C Estimated Blood Loss 200 Findings Consistent with Post-Op Diagnosis Specimens Right humeral head Description of Procedure A CPT code modifier 59: The long head of the biceps tendon was enlarged and inflamed consistent with tendinopathy. A tenodesis was opted. This was a separate and distinct portion of the procedure. For these reasons, a CPT code modifier 59 will be added to this case. Implants used: I used a [employer] Comprehensive reverse total shoulder arthroplasty system with a size 12 press fit micro humeral stem, a +6 offset humeral tray and a standard humeral bearing, a 25 mm baseplate with a 6.5 mm central screw and superior and inferior locking screws, and a size 36 mm eccentric glenosphere. Neetu arrived at [facility] for the above procedure. She was seen in the preoperative holding area and the operative extremity was identified and signed. She was given a preoperative antibiotic, TXA, and an interscalene nerve block. She was taken back to the operating room, laid on table in supine position, and put under general anesthesia. She was then put into the beachchair position. The shoulder was then prepped and draped in sterile fashion. A timeout was done and the patient and the operative extremity was properly identified. A deltopectoral approach was used. Dissection was taken down through the fascia and the deltoid was retracted laterally and the conjoined tendon was retracted medially. The anterior shoulder was exposed. The biceps groove was opened up and the biceps tendon was examined extensively. The biceps tendon demonstrated enlargement and inflammatory changes consistent with longstanding inflammation in the context of osteoarthritis and cuff arthropathy. The long head of the biceps tendon was then tenodesed to the upper border of the pectoralis major. This was a separate and distinct portion of the procedure. The subscapularis was then directly released off the lesser tuberosity with a peel technique. The inferior capsule was released and the humeral head was dislocated. A canal finding reamer was sent down the center of the humeral canal. Sequential reaming up to a size 12 reamer was done. Off that reamer, a proximal humeral resection guide was placed. The proximal humerus was resected at 135 of inclination and 25 of retroversion. Osteophytes were then removed and the glenoid was exposed. Time was spent doing a complete capsular and labral release. The glenoid guide was then placed in the inferior aspect of the glenoid. A 3.2 mm Steinmann pin was then placed into the glenoid vault at 10 of inclination. The glenoid baseplate was then reamed. The final size 2.5 mm baseplate was then impacted in the place. A 6.5 mm central screw was then placed followed by superior and inferior locking screws. A 36 mm eccentric glenosphere was then impacted into place. Surrounding soft tissues were then injected with 100 cc an orthopedic pain control cocktail. The proximal humerus was then exposed. Sequential broaching of the humerus up to a size 12 broach was done. Off that broach a +6 offset humeral tray was trialed. The shoulder was then reduced, brought through a full range of motion, and felt to be stable. The shoulder was then dislocated and the broach was removed. The final size 12 micro press-fit humeral stem was then impacted into place. A standard humeral bearing was then snapped onto a +6 offset humeral tray. The humeral tray was then impacted onto the humeral stem. The shoulder was once again reduced, brought through a full range of motion, and felt to be stable. The subscapularis was poor quality and unable to be repaired. A dilute betadyne lavage was then done for 3 minutes. The joint was then irrigated with normal saline solution. Hemostasis was obtained. The interval was closed with 2-0 Vicryl suture. The skin was then closed with 2-0 Vicryl and arely. A Silverlon dressing was placed and the arm was rested in a regular arm sling. She was then extubated and transferred to a hospital bed. She taken to the postanesthesia care unit in stable condition. She tolerated the procedure well. Gama Galeana PA-C, was present for the entire procedure. He was critical for patient positioning, prepping, draping, retraction exposure, wound closure and application of sterile dressing. I attest to the content of the Intraoperative Record and any orders documented therein. Any exceptions are noted below.
--- NOTE | 2024-11-22 12:05 | XRay Report ---
RIGHT SHOULDER 2 VIEWS CLINICAL HISTORY: Postoperative examination. FINDINGS: 2 portable views of the right shoulder are compared to study dated 12/21/2023. The skeletal structures are osteopenic. A right shoulder arthroplasty is in near anatomic alignment. No acute frac ture is seen. Subcutaneous gas and soft tissue swelling overlying the right shoulder are expected pos tsurgical changes. Question postsurgical change at the acromioclavicular joint. Atelectasis is seen a t the right lung base. IMPRESSION: Expected postoperative findings status post right shoulder arthroplasty. No acute fractur e is seen. Electronically signed by: Amor Dye M.D. 11/22/2024 12:04 PM
[2024-11-22] MEDS ORDERED: NALOXONE HCL 0.4 MG/1 ML VIAL/CARP IV PRN (12:43)
[2024-11-22] MEDS ORDERED: METOCLOPRAMIDE HCL INJ 5 MG/ML 2 ML VIAL IV PRN (12:43)
[2024-11-22] MEDS ORDERED: MAGNESIUM HYDROXIDE SUSP 30 ML UDC PO PRN (12:43)
[2024-11-22] MEDS ORDERED: HYDROmorphone INJ 0.5 MG/0.5 ML SYR IV PRN (12:43)
[2024-11-22] MEDS: BUPIVACAINE LIPOSOME 1.3% 133 MG/10 ML VIAL ONE (13:34)
[2024-11-22] MEDS: KETOROLAC TROMETHAMINE 15 MG/ML VIAL IV SCH (14:06)
[2024-11-22] MEDS: SODIUM CHLORIDE 0.9% 1,000 ML IV SCH (15:24)
--- NOTE | 2024-11-22 16:27 | Anesthesiology Progress Note ---
Date of Service November 22, 2024 Anesthesia Post Procedure Vital Signs Vital Signs: Temp Pulse Pulse Resp BP Pulse Ox O2 Del Method 11/22/24 15:45 36.7 C 102 H 16 125/68 93 Room Air 11/22/24 14:30 36.6 C 103 H 16 118/70 93 Room Air 11/22/24 13:30 36.6 C 104 H 16 131/71 96 Room Air 11/22/24 13:00 36.3 C L 97 H 16 117/70 95 Room Air 11/22/24 12:31 36.6 C 96 H 18 119/64 95 Nasal Cannula 11/22/24 12:20 96 H 20 125/54 L 93 Nasal Cannula 11/22/24 12:05 36.5 C 94 H 15 129/52 L 95 Nasal Cannula 11/22/24 11:55 94 H 16 123/65 100 Oxymask 11/22/24 11:45 93 H 19 127/52 L 100 Oxymask 11/22/24 11:38 36.0 C L 93 H 19 126/45 L 97 Oxymask 11/22/24 08:01 37.2 C 90 18 146/59 H 96 Room Air O2 Flow Rate 11/22/24 15:45 11/22/24 14:30 11/22/24 13:30 11/22/24 13:00 11/22/24 12:31 2 11/22/24 12:20 2 11/22/24 12:05 2 11/22/24 11:55 5 11/22/24 11:45 5 11/22/24 11:38 5 11/22/24 08:01 Pain Intensity Right Shoulder: Pain Intensity: 2 Transfer of Care Handoff Completed per policy Notes Mental Status: alert / awake / arousable and participated in evaluation Patient Amnestic to Procedure: Yes Nausea / Vomiting: adequately controlled Pain: adequately controlled Airway Patency, RR, SpO2: stable & adequate BP & HR: stable & adequate Hydration State: stable & adequate Anesthetic Complications: no major complications apparent and Pt Satisfied with anesthetic care
[2024-11-22] MEDS: PRIMIDONE 50 MG TAB PO SCH (21:31)
[2024-11-22] MEDS: NORTRIPTYLINE HCL 25 MG CAP PO SCH (21:32)
[2024-11-22] MEDS: DOCUSATE SODIUM 100 MG CAP PO SCH (21:34)
[2024-11-22] MEDS: SENNA 8.6 MG TAB PO SCH (21:34)
[2024-11-23 03:49] VITALS: RESP 16; TEMP 98.2
[2024-11-23 07:15] VITALS: BP 123/72; PULSE 86; O2SAT 92
[2024-11-23] MEDS: MULTIVITAMIN TAB PO SCH (08:58)
[2024-11-23] MEDS: hydroCHLOROthiazide 25 MG TAB PO SCH (08:58)
--- NOTE | 2024-11-23 09:38 | Orthopedic Progress Note ---
Date of Service November 23, 2024 Assessment & Plan (1) Status post reverse total arthroplasty of right shoulder: * Continue Current Treatment * Disposition: home * Daily treatment: Physical Therapy/ Occupational Therapy per protocol * Weight bearing status: NWB RUE * Continue to monitor for ABLA * Pain control * DVT prophylaxis, ASA * Office/hospital f/u 2 weeks for progress check and staple/suture removal * Plan for discharge today pending PT/OT clearance Subjective . Active Problems: S/p right rTSA POD 1 74 y/o female s/p right rTSA. Doing well overall, pain managed and improved function. Denies fever/chills, chest pain/SOB, nausea/vomiting. Otherwise no complaints. Review of Systems All systems reviewed & are unremarkable except as noted in HPI & below. Physical Exam . .Right shoulder surgical dressing CDI, not removed for exam. Otherwise no obvious deformity or overlying skin changes. Diffuse TTP upper arm and shoulder region. Otherwise no specific tenderness of upper arm, elbow, forearm, wrist/hand. AROM shoulder not assessed. AROM elbow, wrist/hand intact. Sensation intact radial/median/ulnar nerve distributions. Brisk capillary refill. Results & Data Results & Data Laboratory Results . Diagnostic Findings . Shoulder X-Ray 11/22/24 11:37 RIGHT SHOULDER 2 VIEWS CLINICAL HISTORY: Postoperative examination. FINDINGS: 2 portable views of the right shoulder are compared to study dated 12/21/2023. The skeletal structures are osteopenic. A right shoulder arthroplasty is in near anatomic alignment. No acute fracture is seen. Subcutaneous gas and soft tissue swelling overlying the right shoulder are expected postsurgical changes. Question postsurgical change at the acromioclavicular joint. Atelectasis is seen at the right lung base. IMPRESSION: Expected postoperative findings status post right shoulder arthroplasty. No acute fracture is seen. Electronically signed by: Amor Dye M.D. 11/22/2024 12:04 PM PG Care Time/CCT Total # of Minutes Spent Total Time Spent with Patient: Total time spent is greater than 50% in coordination of care (as documented) at patient's floor/unit and/or counseling patient: Coding Level of Care Code 06693 Post Operative Follow-Up Diagnoses Status post reverse total arthroplasty of right shoulder Z96.611
== END 2024-11-23 11:57 | disposition home or self-care (01) ==
LOC: 3E 07:44 → ASU 07:44